=== PATIENT | male | born 1995 | race Caucasian/White ===

== ENCOUNTER 2024-02-18 12:43 | Emergency (ER) | payer OTHER ==
--- NOTE | 2024-02-18 12:46 | ERPHSYRPT ---
- History of Present Illness Time Seen by Provider: 02/18/24 12:45 Historian: patient Exam Limitations: no limitations Physician History: This is an overweight 28-year-old male patient of Dr. Duran who was recently placed on lisinopril to treat high blood pressure and presents to the emergency department with intermittent, substernal, central chest achiness. The achiness does not radiate. He has no associated shortness of breath. Patient denies excess stress in his life. He appears anxious. He has no documented history or diagnoses of coronary artery disease. He does not consume tobacco in any form. He has no abdominal pain. Timing/Duration: week(s) (1), intermittent Quality: aching Location: substernal, central Severity of Pain-Max: mild Severity of Pain-Current: none Modifying Factors: Improves With: nothing Associated Symptoms: denies symptoms Prior Chest Pain/Cardiac Workup: no prior chest pain Nitro Today/Relief: no nitro taken today Aspirin Treatment Today: no aspirin today Allergies/Adverse Reactions: No Known Drug Allergies Allergy (Unverified 07/20/12 08:48) Home Medications: Lisinopril 10 mg [Zestril 10 MG] 10 mg PO DAILY 02/18/24 [History] Hx Tetanus, Diphtheria Vaccination/Date Given: No Hx Influenza Vaccination/Date Given: No Hx Pneumococcal Vaccination/Date Given: No Travel Risk - International Travel Have you traveled outside of the country in past 3 weeks: No - Emerging Infectious Disease Are you exhibiting symptoms associated with any current EIDs: No - Review of Systems Constitutional: No Symptoms Eyes: No Symptoms Ears, Nose, & Throat: No Symptoms Respiratory: No Symptoms Cardiac: Chest Pain Abdominal/Gastrointestinal: No Symptoms Genitourinary Symptoms: No Symptoms Musculoskeletal: No Symptoms Skin: No Symptoms Neurological: No Symptoms Psychological: No Symptoms Endocrine: No Symptoms Hematologic/Lymphatic: No Symptoms Immunological/Allergic: No Symptoms All Other Systems: Reviewed and Negative - Past Medical History Pertinent Past Medical History: No - Past Surgical History Past Surgical History: No - Social History Smoking Status: Never smoker Exposure to second hand smoke: No Drug Use: none Patient Lives Alone: No - Nursing Vital Signs Nursing Vital Signs: Initial Vital Signs Temperature 98.7 F 02/18/24 12:44 Pulse Rate 86 02/18/24 12:44 Respiratory Rate 18 07/12/24 12:44 Blood Pressure 153/102 07/12/24 12:44 O2 Sat by Pulse Oximetry 97 02/18/24 12:44 Pain Scale Pain Intensity 2 - Physical Exam General Appearance: no apparent distress, alert, anxiety, obese Eye Exam: PERRL/EOMI, eyes nml inspection Ears, Nose, Throat Exam: normal ENT inspection, moist mucous membranes Neck Exam: normal inspection, non-tender, supple, full range of motion Respiratory Exam: normal breath sounds, lungs clear, airway intact, No chest tenderness, No respiratory distress Cardiovascular Exam: regular rate/rhythm, normal heart sounds, normal peripheral pulses Gastrointestinal/Abdomen Exam: soft, normal bowel sounds, No tenderness Rectal Exam: not done Back Exam: normal inspection, normal range of motion, No CVA tenderness, No vertebral tenderness Extremity Exam: normal inspection, normal range of motion, pelvis stable Neurologic Exam: alert, oriented x 3, cooperative, table worker II-XII nml as tested, nml cerebellar function, nml station & gait, sensation nml Skin Exam: normal color, warm, dry Lymphatic Exam: No adenopathy SpO2 Interpretation: normal O2 Delivery: Room Air - Course Nursing assessment & vital signs reviewed: Yes EKG Interpreted by Me: RATE (85), Sinus Rhythm, NORMAL AXIS, NORMAL INTERVALS, NORMAL QRS, Other (No acute ischemia on today's twelve-lead EKG.) Ordered Tests: Active Orders 24 hr Category Date Time Status Pipe Straightener STAT Care 02/18/24 12:56 Active EKG-ER Only STAT Care 02/18/24 12:56 Active IV Insertion STAT Care 02/18/24 12:56 Active Pulse Oximetry (ED) STAT Care 02/18/24 12:56 Active CHEST 1 VIEW (PORTABLE) Stat Exams 02/18/24 12:56 Completed CBC W DIFF Stat Lab 02/18/24 12:50 Completed CMP Stat Lab 02/18/24 12:50 Completed D-DIMER QUANTITATIVE Stat Lab 02/18/24 12:50 Completed MAG [MAGNESIUM] Stat Lab 02/18/24 12:50 Completed TROPONIN Q4H Lab 02/18/24 12:50 Completed TROPONIN Q4H Lab 02/18/24 17:00 Ordered TROPONIN Q4H Lab 02/18/24 21:00 Ordered Medication Summary Discontinued Medications Generic Name Dose Route Start Last Admin Trade Name Freq PRN Reason Stop Dose Admin Aspirin 324 mg 02/18/24 12:56 02/18/24 13:01 Aspirin 81 Mg Tab.Chew PO 02/18/24 12:57 324 mg STAT ONE Administration Aspirin Confirm 02/18/24 12:59 Aspirin 81 Mg Tab.Chew Administered 02/18/24 13:00 Dose 324 mg .ROUTE .STK-MED ONE Lab/Rad Data: Laboratory Result Diagrams 02/18/24 12:50 02/18/24 12:50 Laboratory Results 02/18/24 02/18/24 02/18/24 Range/Units 12:50 12:50 12:50 WBC (4.23-9.07) x10^3/uL RBC (4.63-6.08) x10^6/uL Hgb (13.7-17.5) g/dL Hct (40.1-51.0) % MCV (79.0-92.2) fL MCH (25.7-32.2) pg MCHC (32.3-36.5) g/dL RDW (11.6-14.4) % Plt Count (163-337) x10^3/uL MPV (9.4-12.4) fL Gran % (34.0-67.9) % Immature Gran % (Auto) (0.001-0.429) % Nucleat RBC Rel Count (0.00-0.2) % Eos # (Auto) (0.04-0.54) x10^3/uL Immature Gran # (Auto) (0.001-0.031) x10^3u/L Absolute Lymphs (auto) (1.32-3.57) x10^3/uL Absolute Monos (auto) (0.30-0.82) x10^3/uL Absolute Nucleated RBC (0.00-0.012) x10^3u/L Lymphocytes % (21.8-53.1) % Monocytes % (5.3-12.2) % Eosinophils % (0.8-7.0) % Basophils % (0.2-1.2) % Absolute Granulocytes (1.78-5.38) x10^3/uL Basophils # (0.01-0.08) x10^3/uL D-Dimer < 0.19 (0.0-0.50) mg/L Sodium 143 (135-145) mmol/L Potassium 3.6 (3.5-5.1) mmol/L Chloride 107 (98-107) mmol/L Carbon Dioxide 25 (22-30) mmol/L Anion Gap 14.6 (5-15) MEQ/L BUN 9 (9-20) mg/dL Creatinine 0.78 (0.66-1.25) mg/dL Estimated GFR 124.6 ML/MIN Glucose 108 H (74-106) mg/dL Calcium 9.1 (8.4-10.2) mg/dL Magnesium 2.2 (1.6-2.3) mg/dL Total Bilirubin 1.40 H (0.2-1.3) mg/dL AST 50 (17-59) U/L ALT 62 H (0-50) U/L Alkaline Phosphatase 122 (38-126) U/L Troponin I < 0.012 (0.000-0.033) ng/mL Serum Total Protein 8.2 (6.3-8.2) g/dL Albumin 4.6 (3.5-5.0) g/dL /08/01 Range/Units 12:50 WBC 9.1 H (4.23-9.07) x10^3/uL RBC 5.22 (4.63-6.08) x10^6/uL Hgb 15.1 (13.7-17.5) g/dL Hct 44.5 (40.1-51.0) % MCV 85.2 (79.0-92.2) fL MCH 28.9 (25.7-32.2) pg MCHC 33.9 (32.3-36.5) g/dL RDW 12.2 (11.6-14.4) % Plt Count 301 (163-337) x10^3/uL MPV 11.5 (9.4-12.4) fL Gran % 52.4 (34.0-67.9) % Immature Gran % (Auto) 0.2 (0.001-0.429) % Nucleat RBC Rel Count 0.0 (0.00-0.2) % Eos # (Auto) 0.32 (0.04-0.54) x10^3/uL Immature Gran # (Auto) 0.02 (0.001-0.031) x10^3u/L Absolute Lymphs (auto) 3.31 (1.32-3.57) x10^3/uL Absolute Monos (auto) 0.66 (0.30-0.82) x10^3/uL Absolute Nucleated RBC 0.00 (0.00-0.012) x10^3u/L Lymphocytes % 36.2 (21.8-53.1) % Monocytes % 7.2 (5.3-12.2) % Eosinophils % 3.5 (0.8-7.0) % Basophils % 0.5 (0.2-1.2) % Absolute Granulocytes 4.78 (1.78-5.38) x10^3/uL Basophils # 0.05 (0.01-0.08) x10^3/uL D-Dimer (0.0-0.50) mg/L Sodium (135-145) mmol/L Potassium (3.5-5.1) mmol/L Chloride (98-107) mmol/L Carbon Dioxide (22-30) mmol/L Anion Gap (5-15) MEQ/L BUN (9-20) mg/dL Creatinine (0.66-1.25) mg/dL Estimated GFR ML/MIN Glucose (74-106) mg/dL Calcium (8.4-10.2) mg/dL Magnesium (1.6-2.3) mg/dL Total Bilirubin (0.2-1.3) mg/dL AST (17-59) U/L ALT (0-50) U/L Alkaline Phosphatase (38-126) U/L Troponin I (0.000-0.033) ng/mL Serum Total Protein (6.3-8.2) g/dL Albumin (3.5-5.0) g/dL - Progress Progress: improved, re-examined Air Movement: good Progress Note: 02/18/24 13:11 My medical decision making and the assignment of moderate complexity to this patient's medical issue today is based on review of the patient's past medical history, review of the patient's medication list, or review patient drug allergy list, history present illness and physical findings on examination. The workup in this patient includes placement of an intravenous line, provide the patient with 324 mg baby aspirin, CBC, CMP, troponin level, D-dimer level, chest x-ray, twelve-lead EKG, CBC, CMP and magnesium level. Differential diagnosis includes but is not limited to muscle skeletal pain, electrolyte abnormalities, myocardial infarction, pulmonary embolus, arrhythmia 02/18/24 13:20 Chest x-ray was interpreted by the radiologist and I reviewed the impression. The impression states normal heart lungs. No acute cardiopulmonary process. 02/18/24 14:13 I interpreted the patient's laboratory data results. Based on the patient's laboratory data results, there are no acute, emergent medical issues. Blood Culture(s) Obtained: No Antibiotics given: No Medical Desision Making - Independent Historian Additional History obtained from: Mother - Diagnostic Testing Diagnostic test were ordered, analyzed, and reviewed by me: Yes Radiological Interpretation: Reviewed by me, Teleradiologist Report - Risk of complications Minimal Risk: Minimal risk of morbidity - Departure Departure Disposition: Home Clinical Impression: Nonspecific chest pain Condition: Stable Critical Care Time: No Referrals: NIKOLE DURAN MD [Primary Care Provider] - Follow up/PCP as directed Additional Instructions: Drink plenty fluids. Take your medication as prescribed. Follow-up with your primary care provider today, 02/18/2024, to make arranges for follow-up appointment for further evaluation management and to be seen in the next 5 days.
[2024-02-18 12:49] VITALS: TEMP 98.7
[2024-02-18] MEDS ORDERED: BABY ASPIRIN 81 MG CHEW ONE (12:59)
[2024-02-18] MEDS: BABY ASPIRIN 81 MG CHEW PO ONE (13:01)
[2024-02-18 13:07] LABS: Absolute Neutrophil Ct (ANC) 4.78 x10^3/uL (1.78-5.38); BASOPHIL % 0.5 % (0.2-1.2); Basophil (Absolute #) 0.05 x10^3/uL (0.01-0.08); Eosinophil % 3.5 % (0.8-7.0); Eosinophil (Absolute #) 0.32 x10^3/uL (0.04-0.54); Hematocrit 44.5 % (40.1-51.0); Hemoglobin 15.1 g/dL (13.7-17.5); IMMATURE GRAN # 0.02 x10^3u/L (0.001-0.031); IMMATURE GRAN % 0.2 % (0.001-0.429); Lymphocyte (Absolute #) 3.31 x10^3/uL (1.32-3.57); Lymphocytes % 36.2 % (21.8-53.1); Mean Cell Volume 85.2 fL (79.0-92.2); Mean Corpuscular Hemoglobin 28.9 pg (25.7-32.2); Mean Corpuscular Hgb Concent. 33.9 g/dL (32.3-36.5); Mean Platelet Volume 11.5 fL (9.4-12.4); Monocyte (Absolute #) 0.66 x10^3/uL (0.30-0.82); Monocytes % 7.2 % (5.3-12.2); Neutrophil % 52.4 % (34.0-67.9); Platelet Count 301 x10^3/uL (163-337); Red Blood Count 5.22 x10^6/uL (4.63-6.08); Red Cell Distribution Width 12.2 % (11.6-14.4); White Blood Count 9.1 x10^3/uL (4.23-9.07)
--- NOTE | 2024-02-18 13:19 | XRAY ---
Indication: Chest pain. Comparison: None Portable chest demonstrates normal heart, lungs, and bony thorax.
[2024-02-18 13:39] LABS: ALBUMIN 4.6 g/dL (3.5-5.0); ANION GAP 14.6 MEQ/L (5-15); BILIRUBIN,TOTAL 1.4 mg/dL (0.2-1.3); Calcium 9.1 mg/dL (8.4-10.2); Creatinine 1 0.78 mg/dL (0.66-1.25); EST GLOMERULAR FILTRATION RATE 124.6 ML/MIN; MAGNESIUM 2.2 mg/dL (1.6-2.3); Potassium 3.6 mmol/L (3.5-5.1); Total Protein 8.2 g/dL (6.3-8.2)
[2024-02-18 13:56] VITALS: RESP 15
[2024-02-18 14:13] VITALS: BP 148/97; PULSE 72; O2SAT 94
== END 2024-02-18 14:45 | disposition home or self-care (01) ==
LOC: ED 12:43
DX: R07.9 Chest pain, unspecified (principal); Z79.899 Other long term (current) drug therapy
CPT/HCPCS: 36000; 36415; 71045; 80053; 83735; 84484; 85025; 85379; 93005; 93041; 94760; 99284; A9270-GY